=== PATIENT | male | born 1945 | race Caucasian/White ===

== ENCOUNTER 2017-10-07 11:07 | Emergency (ER) | payer MEDICARE, MEDICAID ==
[2017-10-07 12:12] LABS: Bilirubin Negative (Negative); Blood, Urine Large (Negative); Glucose, Urine (Dipstick) Negative (Negative); Ketone, Urine Negative (Negative); Nitrite Negative (Negative); Protein, Urine (Dipstick) Trace mg/dL (Neg-Trace); Urobilinogen 0.2 mg/dL (0.2-1.0)
[2017-10-07 12:13] LABS: Bacteria/HPF None Seen HPF (None Seen); Hyaline Casts/LPF 0-3 HYALINE CAST LPF (0-3 Hyaline); RBC/HPF GREATER THAN 50-TNTC HPF (0-3); Squamous Epithelial None Seen HPF (0-3); WBC/HPF 0-3 HPF (0-3)
== END 2017-10-07 12:52 | disposition home or self-care (01) ==
LOC: ERS 11:07
DX: N30.01 Acute cystitis with hematuria (principal); E66.9 Obesity, unspecified; E11.9 Type 2 diabetes mellitus without complications; E78.5 Hyperlipidemia, unspecified; I10 Essential (primary) hypertension; J44.9 Chronic obstructive pulmonary disease, unspecified; F41.9 Anxiety disorder, unspecified; F31.9 Bipolar disorder, unspecified; Z87.891 Personal history of nicotine dependence; Z79.4 Long term (current) use of insulin; Z79.899 Other long term (current) drug therapy; Z85.3 Personal history of malignant neoplasm of breast
CPT/HCPCS: 81003; 81015; 87086; 99283

== ENCOUNTER 2018-01-09 04:14 | Inpatient (IN) | payer MEDICARE, MEDICAID ==
[~2018-01-09 04:14] MED LIST: Succinylcholine Chloride 20 MG/ML 10 ml SYRINGE FS ONE
[2018-01-09] MEDS ORDERED: Midazolam HCl 2 mg/2 ml Vial ONE (04:24)
[2018-01-09 04:37] LABS: Bilirubin Negative (Negative); Blood, Urine Negative (Negative); Clarity CLOUDY (Clear); Glucose, Urine (Dipstick) 250 mg/dL (Negative); Leukocyte Negative (Negative); Nitrite Negative (Negative); Protein, Urine (Dipstick) Trace mg/dL (Neg-Trace); Specific Gravity, Urine 1.011 (1.002-1.036); Urobilinogen 0.2 mg/dL (0.2-1.0); pH, Urine 7.5 (5.0-9.0)
[2018-01-09 04:47] LABS: Amphetamine Not Detected (NotDetected); Barbiturates Screen Not Detected (NotDetected); Benzodiazepine Screen Not Detected (NotDetected); Cocaine Metabolite Screen Not Detected (NotDetected); Medtox Control Line Valid? VALID (VALID); Medtox Reader # READER 4; Methadone Not Detected (NotDetected); Methamphetamine Not Detected (NotDetected); Opiate Screen Not Detected (NotDetected); Oxycodone Screen Not Detected (NotDetected); Phencyclidine (PCP) Not Detected (NotDetected); THC/Cannabinoid Screen Not Detected (NotDetected); Tricyclic Screen Not Detected (NotDetected)
[2018-01-09 04:56] LABS: #Basophils 0.1 thou/uL (0.0-0.2); #Eosinphils 0.2 thou/uL (0.0-0.7); #Lymphocytes 0.9 thou/uL (1.20-3.40); #Monocytes 0.6 thou/uL (0.11-0.59); #Neutrophils 7.4 thou/uL (1.40-6.50); %Basophils 0.7 % (0.0-1.0); %Eosinophils 1.9 % (0.0-10.0); %Lymphocytes 9.4 % (21.0-51.0); %Monocytes 6.3 % (0.0-10.0); %Neutrophils 81.8 % (42.0-75.0); Hemoglobin 13.5 g/dL (14.0-18.0); Mean Corpuscular HGB CONC 32.1 g/dL (32.0-36.0); Mean Corpuscular Hemoglobin 31.6 pg (27.0-31.0); Mean Corpuscular Volume 98.5 fl (80.0-94.0); Mean Platelet Volume 7.7 fL (7.4-10.4); Platelet Count 204 thou/uL (130-400); RBC Distribution Width 13.8 % (11.5-14.5); Red Blood Cell (RBC) Count 4.28 mill/uL (4.70-6.10)
[2018-01-09 05:20] LABS: ALT (SGPT) 14 U/L (8-55); AST (SGOT) 13 U/L (5-34); Acetaminophen Less than 6.0 mcg/mL (10.0-30.0); Albumin 4.2 g/dL (3.4-4.8); Alcohol Less than 10 mg/dL (Less than 10); Alkaline Phosphatase 69 U/L (40-150); BUN (Urea Nitrogen) 18 mg/dL (8.4-25.7); Bilirubin, Total 0.5 mg/dL (0.2-1.2); CK (CPK) 29 U/L (30-200); Calc. Creatinine Clearance 0 mL/min (70-130); Calcium 9.3 mg/dL (7.8-10.44); Estimated GFR-MDRD Greater than 90; Glucose 225 mg/dL (83-110); Lipase 15 U/L (8-78); Protein, Total 7.2 g/dL (5.8-8.1); Salicylate Less than 8.0 mg/dL (15.0-30.0)
[2018-01-09 05:22] LABS: CKMB 2.1 ng/mL (0-6.6); Troponin I Less than 0.010 ng/mL (< 0.028)
[2018-01-09 05:29] LABS: Anion Gap 16 mmol/L (10-20); Carbon Dioxide 36 mmol/L (23-31); Chloride 95 mmol/L (98-107); Potassium 4.1 mmol/L (3.5-5.1); Sodium 143 mmol/L (136-145)
[2018-01-09 05:30] LABS: pH, Arterial 7.42 (7.35-7.45)
[2018-01-09 05:31] LABS: Actual Bicarbonate (HCO3a) 38.6 mEq/L (22-26); CO2 Tension 60.5 mmHg (35.0-45.0); Hematocrit-ABG 36.8 % (42.0-52.0); Hemoglobin (Hb) 11.6 g/dL (14.0-18.0); O2 Tension (PaO2) 56.3 mmHg (80.0-100.0)
[2018-01-09 05:32] LABS: Prothrombin Time 12.8 SEC (12.0-14.7)
[2018-01-09 05:32] LABS: ALV-art Gradient 222.075 (0-20); Analyzer IN Cardio ER; Calcium, Ionized 1.1 mmol/L (1.12-1.30); Puncture Site RBA
[2018-01-09] MEDS ORDERED: Cefepime 2 GM/10 ML SYR ONE (05:34)
[2018-01-09] MEDS ORDERED: fentaNYL Citrate/PF 2,000 MCG in Sodium Chloride 0.9% 60 ML IV SCH (05:44)
[2018-01-09] MEDS ORDERED: Vancomycin HCl 1.5 GM in Sodium Chloride 0.9% 250 ML 300 ML IVPB SCH (05:45)
[2018-01-09] MEDS ORDERED: Bisacodyl 5 MG TAB PO PRN (06:23)
[2018-01-09] MEDS ORDERED: CCU Electrolyte Replacement 1 EACH IVPB ONE (06:23)
[2018-01-09] MEDS ORDERED: Dextrose 50% Abboject 50 ML SYRINGE SLOW IVP PRN (06:23)
[2018-01-09] MEDS ORDERED: Acetaminophen 650 MG Suppository PR PRN (06:23)
[2018-01-09] MEDS ORDERED: Dextrose 5% in Water 1,000 ML IV PRN (06:23)
[2018-01-09] MEDS ORDERED: Acetaminophen 325 MG TAB PO PRN (06:23)
[2018-01-09] MEDS ORDERED: Potassium Phosphate 12 MMOL in Sodium Chloride 0.9% 250 ML 250 ML IV PRN (06:50)
[2018-01-09] MEDS ORDERED: Potassium Phosphate 15 MMOL in Sodium Chloride 0.9% 250 ML 250 ML IV PRN (06:50)
[2018-01-09] MEDS ORDERED: Potassium Chloride 40 MEQ in Sodium Chloride 0.9% 250 ML 250 ML IVPB PRN (06:50)
[2018-01-09] MEDS ORDERED: Magnesium 2 GM/NS 0.9% 100 ML 2 GM in Premix Bag 1 BAG IVPB PRN (06:50)
[2018-01-09] MEDS ORDERED: Magnesium Oxide 400 MG TAB PO PRN ×2 (06:50)
[2018-01-09] MEDS ORDERED: Potassium Chloride 20 MEQ TAB PO PRN (06:50)
[2018-01-09] MEDS ORDERED: Potassium Phosphate 9 MMOL in Sodium Chloride 0.9% 100 ML IVPB PRN (06:50)
[2018-01-09] MEDS ORDERED: CCU ELECTROLYTE REPLACEMENT PROTOCOL FS PRN (06:50)
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
--- NOTE | 2018-01-09 08:02 | RAD ---
PORTABLE CHEST: HISTORY: Post intubation followup. COMPARISON: Exam of 01/09/18 and 4:30 a.m. FINDINGS/IMPRESSION: ET tube has been advanced since the prior exam. NG tube is in place; however, the tip is not visuali zed. Dual-lead pacemaker. There is a central line in place on the right with the tip overlying the SVC. Cardiomegaly with vascular congestion. Left perihilar infiltrate. No significant change in the appe arance of the lung juarez. POS: ANDREW
[2018-01-09] MEDS ORDERED: Vancomycin HCl 500 MG in Sodium Chloride 0.9% 100 ML IVPB SCH (08:30)
--- NOTE | 2018-01-09 08:42 | RAD ---
FRONTAL VIEW CHEST: COMPARISON: 12/08/15. INDICATION: Respiratory difficulty, intubated patient, emergency exam. FINDINGS: There is enlargement of the cardiac silhouette and pulmonary vasculature. There is patchy bibasilar density greater on the right. There has been placement of endotracheal tube with tip at the level of the thoracic inlet. Enteric catheters traverse the lateral aspect of the left upper quadrant. Left -side cardiac pacing device is again seen. IMPRESSION: 1. Decompensated congestive heart failure. Superimposed pneumonia not excluded. Probable right santy e pleural effusion, as well. 2. Supportive tubes as above. 3. Continued followup as warranted. POS: AIDEE
[2018-01-09] MEDS ORDERED: Norepinephrine 8 MG/0.9% NS 250 ML IVPB SCH (08:45)
[2018-01-09] MEDS ORDERED: Vancomycin HCl 1 GM in Premix Bag 1 BAG IVPB SCH (09:00)
[2018-01-09] MEDS ORDERED: Cefepime 2 GM in Sodium Chloride 0.9% 100 ML IVPB SCH (09:00)
[2018-01-09] MEDS ORDERED: FLU VACC TS2017-18 (>65YR) 0.5 ML SYRINGE IM ONE (09:15)
--- NOTE | 2018-01-09 09:48 | CT ---
PRELIMINARY REPORT/[facility]/EMERGENCY AFTER HOURS PROCEDURE: EXAM: CT Head Without Intravenous Contrast EXAM DATE/TIME: Exam ordered 01/09/2018 6:09 AM CLINICAL HISTORY: 72 years old, male; Signs and symptoms; Altered mental status/memory loss; Other: Unresponsive; Patie nt HX: 72 yo m presents to ed unresponsive. Ems states that 48 hours ago pt took alprazolam which he has not taken in 3 months. States that pt has been lethargic since then. Tonight at 19: 30 pt took a lorazepam and this was last time pt was seen normal. Family woke up at 02: 30 and found pt in recliner, difficult to stir, with nasal canula off. Pt has h/o hep c but no confirmed cirrhosis as we ll as h/o copd. No h/o mi, stroke, or clots. Pt not on blood thinner. Gcs 8 per ems. TECHNIQUE: Axial computed tomography images of the head/brain without intravenous contrast. COMPARISON: No relevant prior studies available. FINDINGS: Brain: There are confluent areas of hypoattenuation within the periventricular and subcortical white matter compatible with moderate chronic microvascular ischemic change. No hemorrhage. Ventricles: Normal. No ventriculomegaly. Bones/joints: Normal. No acute fracture. Soft tissues: Normal. Sinuses: Unremarkable as visualized. No acute sinusitis. Mastoid air cells: Unremarkable as visualized. No mastoid effusion. Tubes, lines and devices: There is prominence of the nasopharyngeal soft tissues possibly related to endotracheal tube placement. IMPRESSION: No acute intracranial hemorrhage. There is moderate chronic microvascular ischemic change. Thank you for allowing us to participate in the care of your patient. Dictated and Authenticated by: Akbar Ibanez MD 01/09/2018 6:29 AM Central Time ([place] & [place]) FINAL REPORT NONCONTRAST HEAD CT: HISTORY: The patient is unresponsive. Lethargic. COMPARISON: 03/11/16. TECHNIQUE: Noncontrast head CT is performed from the skull base to the skull vertex. FINDINGS: This report is in agreement with the preliminary report by [facility]. There is no acute intracranial proce ss. Age-appropriate atrophy and extensive chronic small-vessel ischemic change of the white matter a re noted. POS: [facility]
[2018-01-09] MEDS ORDERED: Sodium Chloride 0.9% 1,000 ML IV SCH (11:45)
[2018-01-09] MEDS: Sodium Chloride 0.9% 1,000 ML IV SCH ×2 (12:48→19:47)
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
--- NOTE | 2018-01-09 15:14 | PDOC.EVN ---
Event Note - Event Note Event Note: Patient is seen today in [facility], he is Alert but intubated with low Blood pressures unable to Talk, his lung Sounds Clear to ausculation. Pt had low Blood pressures so he was started on IV fluid bolus, Discussed with nurse at [facility], Waiting on patients Advance Directives, which the family says he is DNR.
[2018-01-09] MEDS ORDERED: Propofol 1,000 MG/100 ML VIAL IV ONE (15:27)
[2018-01-09] MEDS ORDERED: DISCONTINUE PREVIOUS NARCOTIC PAIN MEDICATIONS AND BENZODIAZEPINES FS SCH (15:46)
[2018-01-09] MEDS ORDERED: Morphine 2 MG/ML SYRINGE SLOW IVP PRN (15:46)
[2018-01-09] MEDS: Cefepime 2 GM, Syringe 2.5 ML in Sterile Water 10 ML SLOW IVP SCH (19:46)
[2018-01-09] MEDS: Lorazepam 2 MG/ML VIAL SLOW IVP PRN (19:46)
[2018-01-10] MEDS: Propofol 1,000 MG/100 ML VIAL IV PRN ×7 (00:38→22:30)
[2018-01-10] MEDS: Lorazepam 2 MG/ML VIAL SLOW IVP PRN ×2 (01:55→12:35)
[2018-01-10 06:00] LABS: #Eosinphils 0.1 thou/uL (0.0-0.7); #Monocytes 0.7 thou/uL (0.11-0.59); #Neutrophils 6.3 thou/uL (1.40-6.50); %Basophils 0.6 % (0.0-1.0); %Eosinophils 0.8 % (0.0-10.0); %Lymphocytes 11.8 % (21.0-51.0); %Monocytes 8.6 % (0.0-10.0); %Neutrophils 78.2 % (42.0-75.0); Hemoglobin 11.3 g/dL (14.0-18.0); Mean Corpuscular HGB CONC 32.3 g/dL (32.0-36.0); Mean Corpuscular Hemoglobin 31.4 pg (27.0-31.0); Mean Corpuscular Volume 97.2 fl (80.0-94.0); Mean Platelet Volume 8.5 fL (7.4-10.4); Platelet Count 186 thou/uL (130-400); RBC Distribution Width 14.2 % (11.5-14.5)
[2018-01-10 06:20] LABS: Anion Gap 11 mmol/L (10-20); BUN (Urea Nitrogen) 31 mg/dL (8.4-25.7); Calc. Creatinine Clearance 109 mL/min (70-130); Calcium 8.6 mg/dL (7.8-10.44); Carbon Dioxide 33 mmol/L (23-31); Chloride 100 mmol/L (98-107); Estimated GFR-MDRD 57; Glucose 211 mg/dL (83-110); Potassium 3.1 mmol/L (3.5-5.1); Sodium 141 mmol/L (136-145)
[2018-01-10 06:24] LABS: Vancomycin, Trough 22.2 ug/mL
[2018-01-10] MEDS: Sodium Chloride 0.9% 1,000 ML IV SCH ×3 (06:51→17:00)
[2018-01-10] MEDS: Cefepime 2 GM, Syringe 2.5 ML in Sterile Water 10 ML SLOW IVP SCH ×2 (06:52→17:43)
[2018-01-10 08:14] LABS: CO2 Tension 42.9 mmHg (35.0-45.0)
[2018-01-10 08:15] LABS: Actual Bicarbonate (HCO3a) 32.9 mEq/L (22-26); Base Excess (BEa) 8.9 mEq/L (0 (+/-) 2.5); Calcium, Ionized 1.1 mmol/L (1.12-1.30); Hematocrit-ABG 34.4 % (42.0-52.0); Hemoglobin (Hb) 10.9 g/dL (14.0-18.0); O2 Tension (PaO2) 66.2 mmHg (80.0-100.0); Puncture Site RB
[2018-01-10 08:16] LABS: ALV-art Gradient 163.375 (0-20)
[2018-01-10] MEDS: Potassium Chloride 40 MEQ in Premix Bag 1 BAG IVPB PRN (08:20)
--- NOTE | 2018-01-10 14:11 | PDOC.PN ---
- Subjective Encounter Start Date: 01/10/18 Encounter Start Time: 11:30 Patient is seen today, intubated and sedated with propofol, discussed with Family/. girl Friend at bedside, Answered all questions and concern sns - Objective Resuscitation Status: Resuscitation Status DNR:Do Not Resuscitate MAR Reviewed: Yes Vital Signs & Weight: Vital Signs (12 hours) Temp Pulse Resp BP Pulse Ox 01/10/18 13:06 87 125/74 01/10/18 12:00 99 F 17 01/10/18 11:06 81 130/72 01/10/18 09:00 98.8 F 01/10/18 08:00 98.8 F 87 18 95 01/10/18 07:20 18 01/10/18 07:16 88 130/92 H 01/10/18 07:00 98.8 F 95 01/10/18 04:00 98.9 F 18 Weight Admit Weight 315 lb Weight 319 lb 9.6 oz Most Recent Monitor Data Heart Rate from ECG 89 NIBP 125/74 NIBP BP-Mean 93 Respiration from ECG 13 SpO2 98 I&O: 01/09/18 01/10/18 01/11/18 06:59 06:59 06:59 Intake Total 4014.2 Output Total 1020 1035 Balance 2994.2 -1035 Result Diagrams: 01/10/18 05:25 01/10/18 05:25 Additional Labs: Accuchecks 01/10/18 01/09/18 01/09/18 10:48 20:46 17:00 POC Glucose 176 H 170 H 145 H Radiology Reviewed by me: Yes Phys Exam - Physical Examination Neck: no nodes, no JVD Respiratory: wheezing present Cardiovascular: RRR, no significant murmur Gastrointestinal: soft, non-tender Musculoskeletal: no edema, pulses present Lymphatic: no nodes Skin: no rash, normal turgor Dx/Plan (1) Acute exacerbation of chronic obstructive pulmonary disease (COPD) Code(s): J44.1 - CHRONIC OBSTRUCTIVE PULMONARY DISEASE W (ACUTE) EXACERBATION Status: Acute Comment: Pt is on Iv steroids, On NEbs , pt is couurently intubated, follow Dr. Zuniga recommedations. family opted for DNR based on his Advance Directivesm and Dr. Winters discussing with Family. (2) Acute respiratory failure with hypoxia and hypercapnia Code(s): J96.01 - ACUTE RESPIRATORY FAILURE WITH HYPOXIA; J96.02 - ACUTE RESPIRATORY FAILURE WITH HYPERCAPNIA Status: Acute Comment: COntinue with ventilation, ABG showed improvement, today, Follow critical care recommedations. (3) DM type 2 (diabetes mellitus, type 2) Status: Acute Comment: Continue with SSI. - Plan cont current plan of care, plan discussed w/ family, respiratory therapy, DVT proph w/lovenox * . - Discharge Day Encounter end time: 12:00 Review of Systems - Review of Systems Other: Unable to get ROS. - Medications/Allergies Allergies/Adverse Reactions: Allergies Allergy/AdvReac Type Severity Reaction Status Date / Time haloperidol [From Haldol] Allergy Anxiety Verified 02/14/17 11:55 liraglutide Allergy Verified 02/14/17 11:55 meperidine Allergy Nausea Verified 02/14/17 11:55 Penicillins Allergy Hives Verified 02/14/17 11:55 propafenone [Propafenone] Allergy Verified 02/14/17 11:55 propoxyphene Allergy Verified 02/14/17 11:55 Sulfa (Sulfonamide Allergy Hives Verified 02/14/17 11:55 Antibiotics) Medications: Current Medications Acetaminophen (Tylenol) 650 mg PO Q4H PRN PRN Reason: Headache/Fever or Pain Acetaminophen (Tylenol) 650 mg VT Q4H PRN PRN Reason: Headache/Fever or Pain Albuterol/Ipratropium (Duoneb) 3 ml NEB [id number] PRN PRN Reason: SOB &/or Wheezing Last Admin: 01/09/18 10:35 Dose: 3 ml Albuterol/Ipratropium (Duoneb) 3 ml NEB [id number] ARTHUR Last Admin: 01/10/18 11:06 Dose: 3 ml Bisacodyl (Dulcolax) 10 mg PO DAILYPRN PRN PRN Reason: Constipation Dextrose/Water (Dextrose 50%) 25 gm SLOW IVP PRN PRN PRN Reason: Hypoglycemia Glucagon (Glucagon) 1 mg IM PRN PRN PRN Reason: Hypoglycemia Fentanyl Citrate 2,000 mcg/ (Sodium Chloride) 100 mls @ 0 mls/hr IV INF ARTHUR; Per Protocol PRN Reason: Protocol Stop: 02/08/18 05:44 Last Admin: 01/09/18 16:25 Dose: 100 mls Dextrose/Water (D5w) 1,000 mls @ 0 mls/hr IV .Q0M PRN; As Directed PRN Reason: Hypoglycemia Cefepime HCl 2 gm/ Syringe 2.5 (ml/ Sterile Water) 12.5 mls @ 150 mls/hr SLOW IVP 0600,1800 [facility] Last Admin: 01/10/18 06:52 Dose: 12.5 mls Potassium Chloride 40 meq/ (Sodium Chloride) 270 mls @ 135 mls/hr IVPB ASDIR PRN PRN Reason: FOR SERUM K+ 2.5 - 3.5 Potassium Chloride 40 meq/ (Device) 100 mls @ 50 mls/hr IVPB ASDIR PRN PRN Reason: FOR SERUM K+ 2.5 - 3.5 Last Admin: 01/10/18 08:20 Dose: 100 mls Magnesium Sulfate 1 gm/ Sodium (Chloride) 102 mls @ 102 mls/hr IV PRN PRN PRN Reason: MAG LEVEL 1.4 - 2.0 Magnesium Sulfate 2 gm/ Device 100 mls @ 100 mls/hr IVPB ASDIR PRN PRN Reason: MAGNESIUM < 1.4 Potassium Phosphate 9 mmol/ (Sodium Chloride) 103 mls @ 25.75 mls/hr IVPB ASDIR PRN PRN Reason: Phosphate 1.0-1.8 Potassium Phosphate 12 mmol/ (Sodium Chloride) 254 mls @ 63.5 mls/hr IV ASDIR PRN PRN Reason: Serum phosphate 0.5-0.9 Potassium Phosphate 15 mmol/ (Sodium Chloride) 255 mls @ 63.75 mls/hr IV ASDIR PRN PRN Reason: Serum Phos < 0.5 Sodium Chloride (Normal Saline 0.9%) 1,000 mls @ 125 mls/hr IV .Q8H [facility] Last Admin: 01/10/18 09:25 Dose: 1,000 mls Fentanyl Citrate (Fentanyl Bolus) 250 mls @ 0 mls/hr IVPB PRN PRN; As Directed PRN Reason: Breakthrough pain Stop: 02/08/18 15:46 Vancomycin HCl 1.5 gm/ Sodium (Chloride) 300 mls @ 200 mls/hr IVPB 0600,1800 [facility] Insulin Human Lispro (Humalog) 0 units SC .MILD SLIDING SCALE PRN PRN Reason: Mild Correctional Scale Lorazepam (Ativan) 2 mg SLOW IVP Q2H PRN PRN Reason: Anxiety to achieve Valle 2-3 Stop: 02/08/18 15:46 Last Admin: 01/10/18 12:35 Dose: 2 mg Magnesium Oxide (Magnesium Oxide) 400 mg PO BIDPRN PRN PRN Reason: FOR SERUM MAG 1.4 - 2.0 Magnesium Oxide (Magnesium Oxide) 800 mg PO PRN PRN PRN Reason: FOR SERUM MAG < 1.4 Miscellaneous Medication (Pharmacy To Dose) 1 each IVPB PRN PRN PRN Reason: Pharmacy to dose Miscellaneous Medication (Phos-Nak) 1 pkt PO TIDPRN PRN PRN Reason: FOR PHOS LEVEL 1.0 - 1.8 Miscellaneous Medication (Phos-Nak) 2 pkt PO TIDPRN PRN PRN Reason: FOR PHOS LEVEL 0.5 - 1.0 Morphine Sulfate (Morphine Sulfate) 2 mg SLOW IVP Q2H PRN PRN Reason: Breakthrough pain Stop: 02/08/18 15:46 Potassium Chloride (K-Dur) 40 meq PO ASDIR PRN PRN Reason: FOR SERUM K+ 2.5 - 3.5 Potassium Chloride (Klor-Con) 40 meq PER TUBE ASDIR PRN PRN Reason: FOR SERUM K+ 2.5-3.5 Propofol (Diprivan) 1,000 mg IV INF PRN; Protocol PRN Reason: TO ACHIEVE VALLE SCORE 2-3 Stop: 02/08/18 15:26 Last Admin: 01/10/18 13:08 Dose: 1,000 mg Sodium Chloride (Flush - Normal Saline) 10 ml IVF Q12HR [facility] Last Admin: 01/10/18 08:21 Dose: 10 ml Sodium Chloride (Flush - Normal Saline) 10 ml IVF PRN PRN PRN Reason: Saline Flush
--- NOTE | 2018-01-10 15:54 | PRG ---
DATE OF SERVICE: 01/10/2018 SUBJECTIVE: Mr. Chen awakened this morning for a sedation holiday. He moved all his extremities . OBJECTIVE: VITAL SIGNS: Blood pressure 134/80 now, heart rate is 90, respiratory 23, oximetry is 99. LUNGS: Remarkable for faint wheezes. CARDIOVASCULAR: Regular rhythm. S1 and S2 are normal. ABDOMEN: Soft and nontender. EXTREMITIES: Without asymmetry. Initially, this morning, he refused to allow anybody to draw blood on him. LABORATORY DATA: White count is 8, hemoglobin 11.3, platelets 186,000. Sodium 141, potassium 3.1, c hloride 100, bicarbonate 33, BUN 31, creatinine 1.24, glucose 211. IMPRESSION: 1. Respiratory failure secondary to chronic obstructive pulmonary disease exacerbation. 2. Untreated sleep apnea for many years. 3. Perihilar fullness on the left. Repeat chest radiograph in the morning, has been treated empiric ally for an infectious process. 4. History of medical noncompliance. 5. Do not resuscitate status. PLAN: I met with the daughter and answered all of her questions. I would like to ventilate him for another day to keep him sedated and then reassess him in the morning and see if we can consider weani ng and extubation. Since he was noncompliant with BiPAP last visit, I am sure he will be this visit as well. Microbiology has been reviewed. All cultures are negative so far. Critical care time was 30 minutes.
[2018-01-10] MEDS: HumaLOG 300 UNITS/3 ML VIAL SC PRN ×2 (17:01→23:15)
[2018-01-10] MEDS: Vancomycin HCl 1.5 GM in Sodium Chloride 0.9% 250 ML 300 ML IVPB SCH (17:43)
[2018-01-10] MEDS ORDERED: Amiodarone HCl 150 MG, Admixture Fee 1 EACH in Dextrose 5% in Water 100 ML IVPB SCH ×3 (19:00)
[2018-01-10] MEDS: Amiodarone HCl 450 MG, Admixture Fee 1 EACH in Dextrose 5% in Water 250 ML IVPB SCH ×3 (19:40)
[2018-01-11] MEDS: Propofol 1,000 MG/100 ML VIAL IV PRN ×4 (01:29→09:47)
[2018-01-11] MEDS: Sodium Chloride 0.9% 1,000 ML IV SCH ×2 (03:58→11:49)
[2018-01-11] MEDS: Amiodarone HCl 450 MG, Admixture Fee 1 EACH in Dextrose 5% in Water 250 ML IVPB SCH ×3 (04:47)
[2018-01-11] MEDS: Cefepime 2 GM, Syringe 2.5 ML in Sterile Water 10 ML SLOW IVP SCH (05:02)
[2018-01-11] MEDS: Vancomycin HCl 1.5 GM in Sodium Chloride 0.9% 250 ML 300 ML IVPB SCH (05:02)
[2018-01-11] MEDS: HumaLOG 300 UNITS/3 ML VIAL SC PRN ×2 (05:11→10:50)
[2018-01-11 05:32] LABS: #Eosinphils 0.2 thou/uL (0.0-0.7); #Lymphocytes 0.8 thou/uL (1.20-3.40); #Monocytes 0.8 thou/uL (0.11-0.59); #Neutrophils 6.5 thou/uL (1.40-6.50); %Basophils 0.3 % (0.0-1.0); %Eosinophils 2.5 % (0.0-10.0); %Lymphocytes 9.1 % (21.0-51.0); %Monocytes 9.1 % (0.0-10.0); Hemoglobin 11.1 g/dL (14.0-18.0); Mean Corpuscular HGB CONC 33.3 g/dL (32.0-36.0); Mean Corpuscular Hemoglobin 31.6 pg (27.0-31.0); Mean Corpuscular Volume 95.1 fl (80.0-94.0); Mean Platelet Volume 7.7 fL (7.4-10.4); Platelet Count 160 thou/uL (130-400); RBC Distribution Width 14.5 % (11.5-14.5); Red Blood Cell (RBC) Count 3.52 mill/uL (4.70-6.10); White Blood Cell (WBC) Count 8.3 thou/uL (4.8-10.8)
[2018-01-11 05:53] LABS: Anion Gap 8 mmol/L (10-20); BUN (Urea Nitrogen) 29 mg/dL (8.4-25.7); Calc. Creatinine Clearance 120 mL/min (70-130); Calcium 8.6 mg/dL (7.8-10.44); Carbon Dioxide 34 mmol/L (23-31); Chloride 102 mmol/L (98-107); Estimated GFR-MDRD 64; Glucose 213 mg/dL (83-110); Potassium 3.3 mmol/L (3.5-5.1); Sodium 141 mmol/L (136-145)
[2018-01-11] MEDS: Potassium Chloride 40 MEQ in Premix Bag 1 BAG IVPB PRN (05:58)
--- NOTE | 2018-01-11 08:56 | RAD ---
PORTABLE AP CHEST RADIOGRAPH: Date: 01-11-18 History: Ventilator. Follow up evaluation. Comparison: 01-09-18 FINDINGS: Endotracheal tube and right subclavian central venous catheter remain in place and unchanged in posit ion. Dual-lead left subclavian cardiac pacemaking device is in place. Cardiac silhouette remains enla rged. There are pleural and parenchymal changes at each lung base which may be related to small left pleural effusion and atelectasis. There is prominence of the hilar structures\pulmonary arteries. Ag ain noted is patchy increased opacity in the left hilar region, similar to the prior exam. Given diff erences in technique, chest is overall similar to the prior exam. IMPRESSION: 1. Stable chest with patchy opacity persisting in the left hilar region. Continued follow up to resol ution is recommended. 2. Bibasilar atelectasis and suggestion of small bilateral pleural effusions. 3. Cardiomegaly with findings probably related to pulmonary artery hypertension. POS: [facility]
[2018-01-11 10:51] VITALS: BMI 43.4
[2018-01-11] MEDS ORDERED: Sodium Chloride 0.9% 1,000 ML IV SCH (12:56)
[2018-01-11] MEDS ORDERED: Lorazepam 2 MG/ML VIAL SLOW IVP PRN (12:57)
--- NOTE | 2018-01-11 15:28 | PDOC.PN ---
- Subjective Encounter Start Date: 01/11/18 Encounter Start Time: 13:00 Patient is seen today, alert and oriented. He is extubated, Discussed with Patient at bedised, Discussed about going on Hospice care at home. He was Ok to Talk about it. - Objective Resuscitation Status: Resuscitation Status DNR:Do Not Resuscitate MAR Reviewed: Yes Vital Signs & Weight: Vital Signs (12 hours) Temp Pulse Resp Pulse Ox 01/11/18 14:09 76 24 H 95 01/11/18 12:00 98.9 F 89 L 01/11/18 11:42 84 24 H 87 L 01/11/18 10:49 76 01/11/18 10:00 33 H 01/11/18 08:00 15 01/11/18 07:13 99.3 F 72 28 H 96 01/11/18 07:00 99.3 F 01/11/18 06:48 76 01/11/18 06:00 14 01/11/18 04:00 15 Weight Admit Weight 315 lb Weight 320 lb 10.245 oz Most Recent Monitor Data Heart Rate from ECG 79 NIBP 145/83 NIBP BP-Mean 94 Respiration from ECG 27 SpO2 93 I&O: 01/10/18 01/11/18 01/12/18 06:59 06:59 06:59 Intake Total 4014.2 2567 482 Output Total 1020 2540 675 Balance 2994.2 27 -193 Result Diagrams: 01/11/18 05:26 01/11/18 05:26 Additional Labs: Accuchecks 01/11/18 01/11/18 01/10/18 10:50 05:11 23:12 POC Glucose 161 H 210 H 226 H 01/10/18 16:56 POC Glucose 212 H Radiology Reviewed by me: Yes Phys Exam - Physical Examination HEENT: PERRLA, moist MMs Neck: no nodes, no JVD Respiratory: no wheezing, no rales Cardiovascular: RRR, no significant murmur Gastrointestinal: soft, non-tender Musculoskeletal: no edema, pulses present Neurological: non-focal, normal sensation Lymphatic: no nodes Psychiatric: normal affect, A&O x 3 Dx/Plan (1) Acute exacerbation of chronic obstructive pulmonary disease (COPD) Code(s): J44.1 - CHRONIC OBSTRUCTIVE PULMONARY DISEASE W (ACUTE) EXACERBATION Status: Acute Comment: Pt is on Iv steroids, On NEbs , pt is extubated, follow Dr. Zuniga recommedations. family opted for DNR based on his Advance Directivesm and Dr. Winters discussing with Family. (2) Acute respiratory failure with hypoxia and hypercapnia Code(s): J96.01 - ACUTE RESPIRATORY FAILURE WITH HYPOXIA; J96.02 - ACUTE RESPIRATORY FAILURE WITH HYPERCAPNIA Status: Acute Comment: COntinue with nasal Canula, trnafer pt to Floor. (3) DM type 2 (diabetes mellitus, type 2) Status: Acute Comment: Continue with SSI. - Plan cont current plan of care, plan discussed w/ family, PT/OT, [employer] social science teacher, respiratory therapy, incentive spirometry, DVT proph w/lovenox * . - Discharge Day Encounter end time: 13:35 Review of Systems - Review of Systems Eyes: negative: Pain, Vision Change, Conjunctivae Inflammation, Eyelid Inflammation, Redness, Other ENT: negative: Ear Pain, Ear Discharge, Nose Pain, Nose Discharge, Nose Congestion, Mouth Pain, Mouth Swelling, Throat Pain, Throat Swelling, Other Respiratory: negative: Cough, Dry, Shortness of Breath, Hemoptysis, SOB with Excertion, Pleuritic Pain, Sputum, Wheezing Cardiovascular: negative: chest pain, palpitations, orthopnea, paroxysmal nocturnal dyspnea, edema, light headedness, other Gastrointestinal: negative: Nausea, Vomiting, Abdominal Pain, Diarrhea, Constipation, Melena, Hematochezia, Other Genitourinary: negative: Dysuria, Frequency, Incontinence, Hematuria, Retention , Other Musculoskeletal: negative: Neck Pain, Shoulder Pain, Arm Pain, Back Pain, Hand Pain, Leg Pain, Foot Pain, Other - Medications/Allergies Allergies/Adverse Reactions: Allergies Allergy/AdvReac Type Severity Reaction Status Date / Time haloperidol [From Haldol] Allergy Anxiety Verified 02/14/17 11:55 liraglutide Allergy Verified 02/14/17 11:55 meperidine Allergy Nausea Verified 02/14/17 11:55 Penicillins Allergy Hives Verified 02/14/17 11:55 propafenone [Propafenone] Allergy Verified 02/14/17 11:55 propoxyphene Allergy Verified 02/14/17 11:55 Sulfa (Sulfonamide Allergy Hives Verified 02/14/17 11:55 Antibiotics) Medications: Current Medications Acetaminophen (Tylenol) 650 mg PO Q4H PRN PRN Reason: Headache/Fever or Pain Acetaminophen (Tylenol) 650 mg MS Q4H PRN PRN Reason: Headache/Fever or Pain Albuterol/Ipratropium (Duoneb) 3 ml NEB [id number] PRN PRN Reason: SOB &/or Wheezing Last Admin: 01/09/18 10:35 Dose: 3 ml Albuterol/Ipratropium (Duoneb) 3 ml NEB [id number] ARTHUR Last Admin: 01/11/18 14:09 Dose: 3 ml Amiodarone HCl (Cordarone) 400 mg PO BID ARTHUR Bisacodyl (Dulcolax) 10 mg PO DAILYPRN PRN PRN Reason: Constipation Dextrose/Water (Dextrose 50%) 25 gm SLOW IVP PRN PRN PRN Reason: Hypoglycemia Glucagon (Glucagon) 1 mg IM PRN PRN PRN Reason: Hypoglycemia Dextrose/Water (D5w) 1,000 mls @ 0 mls/hr IV .Q0M PRN; As Directed PRN Reason: Hypoglycemia Potassium Chloride 40 meq/ (Sodium Chloride) 270 mls @ 135 mls/hr IVPB ASDIR PRN PRN Reason: FOR SERUM K+ 2.5 - 3.5 Potassium Chloride 40 meq/ (Device) 100 mls @ 50 mls/hr IVPB ASDIR PRN PRN Reason: FOR SERUM K+ 2.5 - 3.5 Last Admin: 01/11/18 05:58 Dose: 100 mls Magnesium Sulfate 1 gm/ Sodium (Chloride) 102 mls @ 102 mls/hr IV PRN PRN PRN Reason: MAG LEVEL 1.4 - 2.0 Magnesium Sulfate 2 gm/ Device 100 mls @ 100 mls/hr IVPB ASDIR PRN PRN Reason: MAGNESIUM < 1.4 Potassium Phosphate 9 mmol/ (Sodium Chloride) 103 mls @ 25.75 mls/hr IVPB ASDIR PRN PRN Reason: Phosphate 1.0-1.8 Potassium Phosphate 12 mmol/ (Sodium Chloride) 254 mls @ 63.5 mls/hr IV ASDIR PRN PRN Reason: Serum phosphate 0.5-0.9 Potassium Phosphate 15 mmol/ (Sodium Chloride) 255 mls @ 63.75 mls/hr IV ASDIR PRN PRN Reason: Serum Phos < 0.5 Sodium Chloride (Normal Saline 0.9%) 1,000 mls @ 40 mls/hr IV .Q24H [facility] Last Admin: 01/11/18 13:04 Dose: 1,000 mls Insulin Human Lispro (Humalog) 0 units SC .MILD SLIDING SCALE PRN PRN Reason: Mild Correctional Scale Last Admin: 01/11/18 10:50 Dose: 2 unit Lorazepam (Ativan) 2 mg SLOW IVP Q2H PRN PRN Reason: Anxiety to achieve Valle 2-3 Stop: 02/08/18 15:46 Last Admin: 01/10/18 12:35 Dose: 2 mg Lorazepam (Ativan) 1 mg SLOW IVP Q4H PRN PRN Reason: Anxiety/Agitation Magnesium Oxide (Magnesium Oxide) 400 mg PO BIDPRN PRN PRN Reason: FOR SERUM MAG 1.4 - 2.0 Magnesium Oxide (Magnesium Oxide) 800 mg PO PRN PRN PRN Reason: FOR SERUM MAG < 1.4 Miscellaneous Medication (Phos-Nak) 1 pkt PO TIDPRN PRN PRN Reason: FOR PHOS LEVEL 1.0 - 1.8 Miscellaneous Medication (Phos-Nak) 2 pkt PO TIDPRN PRN PRN Reason: FOR PHOS LEVEL 0.5 - 1.0 Morphine Sulfate (Morphine Sulfate) 2 mg SLOW IVP Q2H PRN PRN Reason: Breakthrough pain Stop: 02/08/18 15:46 Potassium Chloride (K-Dur) 40 meq PO ASDIR PRN PRN Reason: FOR SERUM K+ 2.5 - 3.5 Potassium Chloride (Klor-Con) 40 meq PER TUBE ASDIR PRN PRN Reason: FOR SERUM K+ 2.5-3.5 Propofol (Diprivan) 1,000 mg IV INF PRN; Protocol PRN Reason: TO ACHIEVE VALLE SCORE 2-3 Stop: 02/08/18 15:26 Last Admin: 01/11/18 09:47 Dose: 1,000 mg Sodium Chloride (Flush - Normal Saline) 10 ml IVF Q12HR [facility] Last Admin: 01/11/18 08:41 Dose: 10 ml Sodium Chloride (Flush - Normal Saline) 10 ml IVF PRN PRN PRN Reason: Saline Flush
--- NOTE | 2018-01-11 16:46 | PRG ---
DATE OF SERVICE: 01/11/2018 SUBJECTIVE: Mr. Chen did well overnight. He is awake and alert this morning. He met criteria f or extubation. OBJECTIVE: VITAL SIGNS: Heart rate was in the 70s, respiratory rate 20, oximetry was in the 90s. LUNGS: Distant, clear. HEART: Regular rhythm. S1 and S2 were distant. ABDOMEN: Soft and nontender, protuberant abdomen. EXTREMITIES: Without cyanosis or edema. LABORATORY DATA: White count is 8.3, hemoglobin 11.1, platelets 160. Sodium 141, potassium is 3.3, chloride 102, bicarbonate 34, BUN 29, creatinine 1.13, glucose 213. IMPRESSION: 1. Respiratory failure, acute on chronic. 2. Noncompliance with CPAP. 3. Untreated sleep apnea. 4. Chronic obstructive pulmonary disease exacerbation. He met criteria for extubation. Subsequently, he has been extubated. I met with him after extubatio n. He said he wanted to go home immediately. I talked to the family was in the room (5 family members) none of them feel they can take care of him at home. We will honor DO NOT RESUSCITATE status and consider hospice at some point, but he will need to be in some type of care environment at least for the next few days to few weeks. He will move out of the critical care unit today once a bed becomes available. Critical care time was 30 minutes independent of the time spent meeting with the family, which was cl ose to 20 minutes.
[2018-01-11] MEDS: Amiodarone 200 MG TAB PO SCH (20:39)
[2018-01-11] MEDS ORDERED: Melatonin 3 MG TAB PO PRN (21:29)
[2018-01-12] MEDS ORDERED: hydrALAZINE 20 MG/ML VIAL SLOW IVP PRN (00:23)
[2018-01-12] MEDS ORDERED: Atenolol 25 MG TAB PO SCH ×2 (00:30→09:00)
[2018-01-12] MEDS ORDERED: Furosemide 20 MG/2 ML VIAL SLOW IVP SCH (00:30)
[2018-01-12 04:47] VITALS: TEMP 97.4
[2018-01-12] MEDS: Amiodarone 200 MG TAB PO SCH (07:56)
[2018-01-12 08:50] VITALS: BP 171/94
[2018-01-12] MEDS ORDERED: Losartan/Hydrochlorothiazide 100 mg/25 mg Tablet PO SCH (09:00)
[2018-01-12] MEDS ORDERED: Morphine 2 MG/ML SYRINGE SLOW IVP PRN (10:16)
--- NOTE | 2018-01-12 14:13 | DIS ---
DATE OF ADMISSION: 01/09/2018 DATE OF DISCHARGE: 01/12/2018 ADMITTING DIAGNOSIS: Acute hypoxic and hypercapnic respiratory failure. DISCHARGE DIAGNOSES: Acute hypoxic and hypercapnic respiratory failure with end-stage lung disease. SECONDARY DIAGNOSES: 1. Chronic obstructive pulmonary disease exacerbation. 2. Bipolar disorder. 3. Type 2 diabetes mellitus. 4. Hypertension. CONSULTANTS INVOLVED UNDER THE CARE: Dr. Vianey Etienne. HISTORY OF PRESENT ILLNESS AND HOSPITAL COURSE: In brief, this is a 72-year-old white male with a kn own history of COPD and has been initially intubated when he was found unresponsive at home. The pat ient's initial code status was not known, but actually the patient's wishes were not to be intubated and no resuscitation and this was confirmed by Dr. Dr. Winters following discussion with the family. T he patient was remained intubated for at least 2-3 days and his ABGs were looking fine. He was extub ated successfully and the patient wished to be DNR and wanted to go for hospice. The patient was tra nsferred to the floor and his breathing did get worse and he was on a rebreather mask with the jaw br eathing, so Dr. Winters suggested the patient to be on inpatient hospice due to poor prognosis. The patient was discharged to inpatient hospice. PHYSICAL EXAMINATION: VITAL SIGNS: On day of discharge, blood pressure was 171/94, respiratory rate of 24, pulse of 66, sa turation of 91% on rebreathing mask. LUNGS: Bilateral air entry was reduced with increased wheezing noted throughout diffusely. ABDOMEN: Soft and nontender. No guarding, no rebound tenderness. Bowel sounds normal. MUSCULOSKELETAL: No calf tenderness. No pedal edema. HOME MEDICATIONS: Atenolol 50 mg p.o. b.i.d., insulin glargine 100 units subcu daily, losartan/hydro chlorothiazide 1 tablet p.o. daily, Sertraline 50 mg p.o. daily. DISCHARGE INSTRUCTIONS: Continue activity as tolerated. Advised to follow up with the hospice care as inpatient. The patient's prognosis is guarded and very poor, discussed with the family. Continue with the diet as suggested by the hospice care. I spent 30 minutes at the same day of discharge.
--- NOTE | 2018-01-12 15:31 | PRG ---
DATE OF SERVICE: 01/12/2018 SUBJECTIVE: Mr. Chen has declined overnight. He was able to sit on the side of bed yesterday. This morning, he is quite weak. He has signs of respiratory muscle fatigue. He has a prolonged expi ratory phase. OBJECTIVE: VITAL SIGNS: Blood pressure 176/91, heart rate in the 60s, respiratory rate in the 20s, is on nasal cannula. His oximetry is 92%. LUNGS: Remarkable for diffuse wheezes. CARDIOVASCULAR: Regular rhythm. ABDOMEN: Soft. IMPRESSION: 1. End-stage chronic obstructive lung disease combined with extreme deconditioning and obesity. 2. Untreated sleep apnea, noncompliant with CPAP. 3. History of medical noncompliance. I believe he is a candidate for inpatient hospice. I have dis cussed this with the word processor technician. There is little else to offer at this time.
--- NOTE | 2018-01-12 17:38 | EKG ---
Test Reason : Blood Pressure : / mmHG Vent. Rate : 136 BPM Atrial Rate : 119 BPM P-R Int : 000 ms QRS Dur : 110 ms QT Int : 318 ms P-R-T Axes : 000 006 053 degrees QTc Int : 478 ms Atrial fibrillation with rapid ventricular response Inferior infarct , age undetermined Abnormal ECG When compared with ECG of 09-JAN-2018 04:20, (Unconfirmed) Atrial fibrillation has replaced Electronic atrial pacemaker Vent. rate has increased BY 54 BPM Inferior infarct is now Present ST now depressed in Anterolateral leads T wave amplitude has decreased in Anterior leads Confirmed by DR. Moshe SÁNCHEZ ([id number]) on 01/12/2018 5:38:11 PM Referred By: LUCIEN Confirmed By:DR. Moshe SÁNCHEZ
--- NOTE | 2018-01-21 11:45 | EKG ---
Test Reason : ALTERED MENTAL STATU Blood Pressure : / mmHG Vent. Rate : 082 BPM Atrial Rate : 082 BPM P-R Int : 252 ms QRS Dur : 114 ms QT Int : 404 ms P-R-T Axes : 094 -05 053 degrees QTc Int : 472 ms Electronic atrial pacemaker Confirmed by ADA CHAN, PAGE Solano ([id number]), graphics editor SOLITARIO WATERMAN ([id number]) on 01/21/2018 11:44:19 AM Referred By: Confirmed By:PAGE CABALLERO MD
== END 2018-01-12 13:20 | disposition hospice, inpatient (51) | DRG 208 ==
LOC: ERS 04:14 → CCU 05:45 → T4-A 01-11 18:18
PROVIDERS: ADMIT Internal Medicine; ATTEND Internal Medicine
PROC: 5A1945Z Respiratory Ventilation, 24-96 Consecutive Hours (ICD-10-PCS; principal; 2018-01-09)
PROC: 0BH17EZ Insertion of Endotracheal Airway into Trachea, Via Natural or Artificial Opening (ICD-10-PCS; 2018-01-09)
PROC: 02HV33Z Insertion of Infusion Device into Superior Vena Cava, Percutaneous Approach (ICD-10-PCS; 2018-01-09)
DX: J96.22 Acute and chronic respiratory failure with hypercapnia (principal); R40.2212 Coma scale, best verbal response, none, at arrival to emergency department; J44.1 Chronic obstructive pulmonary disease with (acute) exacerbation; E66.2 Morbid (severe) obesity with alveolar hypoventilation; Z68.41 Body mass index [BMI] 40.0-44.9, adult; J96.21 Acute and chronic respiratory failure with hypoxia; E11.9 Type 2 diabetes mellitus without complications; F31.9 Bipolar disorder, unspecified; Z66 Do not resuscitate; Z51.5 Encounter for palliative care; Z91.19 Patient's noncompliance with other medical treatment and regimen; Z87.81 Personal history of (healed) traumatic fracture; E78.00 Pure hypercholesterolemia, unspecified; I10 Essential (primary) hypertension; Z87.891 Personal history of nicotine dependence; R40.2332 Coma scale, best motor response, abnormal flexion, at arrival to emergency department; R40.2132 Coma scale, eyes open, to sound, at arrival to emergency department; F41.9 Anxiety disorder, unspecified; D53.9 Nutritional anemia, unspecified
CPT/HCPCS: 31500; 36416; 36556; 51702; 70450; 71045; 80048; 80053; 80202; 80306; 80307; 81003; 82140; 82553; 82805; 83605; 83690; 84484; 85025; 85610; 85730; 87040; 87086; 87804; 90471; 90682; 93005; 93010; 94002; 94003; 94640; 96365; 96374; A4216; G0008; G8987-GO-CM; G8988-GO-CK; J0282; J0692; J1940; J2060; J2250; J2270; J2704; J3010; J3370; J3480; J7050; J7070; J7620; Q2036